=== PATIENT | male | born 1995 | race Caucasian/White ===

== ENCOUNTER 2017-09-24 22:04 | Emergency (ER) | payer OTHER ==
[2017-09-24 22:27] VITALS: BP 129/73; PULSE 73; RESP 16; TEMP 97.7; O2SAT 100
[2017-09-24 22:35] VITALS: RESP 16; O2SAT 100
[2017-09-24] MEDS ORDERED: MONT10TA4 PO (22:37)
[2017-09-24] MEDS ORDERED: ZONI50CA2 PO (22:37)
[2017-09-24] MEDS ORDERED: NITROGLYCERIN 0.4 MG SL 25 TABS/BTL SL ONE (22:45)
[2017-09-24] MEDS ORDERED: ASPIRIN 325 MG TAB PO ONE (22:45)
[2017-09-24] MEDS ORDERED: SODIUM CHLORIDE 0.9% FLUSH 10 ML FLUSH IVF PRN (22:45)
[2017-09-24 22:53] LABS: BASOPHIL # 0.1 TH/MM3 (0-0.2); BASOPHIL % 1.1 % (0.0-2.0); EOSINOPHIL # 0.2 TH/MM3 (0-0.4); EOSINOPHIL % 2.4 % (0.0-4.0); HEMATOCRIT 44.9 % (39.0-51.0); HEMOGLOBIN 15.8 GM/DL (13.0-17.0); LYMPH % 17.3 % (9.0-44.0); LYMPHOCYTE # 1.7 TH/MM3 (1.0-4.8); MEAN CELL VOLUME 83.5 FL (80.0-100.0); MEAN CORPUSCULAR HEMOGLOBIN 29.4 PG (27.0-34.0); MEAN CORPUSCULAR HGB CONC 35.2 % (32.0-36.0); MONOCYTE # 0.9 TH/MM3 (0-0.9); NEUT % 70.2 % (16.0-70.0); PLATELET COUNT 212 TH/MM3 (150-450); RED BLOOD COUNT 5.38 MIL/MM3 (4.50-5.90); RED CELL DISTRIBUTION WIDTH 13.5 % (11.6-17.2); WHITE BLOOD COUNT 9.9 TH/MM3 (4.0-11.0)
--- NOTE | 2017-09-24 23:02 | RADRPT ---
EXAM DATE/TIME: 09/24/2017 22:36 [place] COMPARISON: No previous studies available for comparison. INDICATIONS : Chest pain and shortness of breath about an hour ago. MEDICAL HISTORY : Asthma. SURGICAL HISTORY : None. ENCOUNTER: Initial ACUITY: 1 day PAIN SCORE: 10/10 LOCATION: Bilateral chest Upper chest FINDINGS: A single view of the chest demonstrates the lungs to be symmetrically aerated without evidence of mas s, infiltrate or effusion. The cardiomediastinal contours are unremarkable. Osseous structures are intact. CONCLUSION: No acute disease. Mian Sears MD on September 24, 2017 at 22:59 Board Certified Radiologist. This report was verified electronically.
--- NOTE | 2017-09-24 23:06 | PD ---
HPI Chief Complaint: Chest Pain Time Seen by Provider: 22:33 Travel History International Travel<30 days: No Contact w/Intl Traveler<30days: No Traveled to known affect area: No History of Present Illness HPI 22-year-old male complains of chest pain on left side moderate to severe in terms of severity with a pressure-like quality and radiation to the left arm. He's felt for about a month. Today it became much worse while he was working which involves primarily sitting down. He has no shortness of breath. No cough or fever. No pleuritic component. He denies hypertension hyperlipidemia high cholesterol however does have family history coronary artery disease. He quit smoking 4 years ago. He denies drug abuse. No alcohol. PFSH Past Medical History Diminished Hearing: No Migraines: Yes Past Surgical History Other Surgery: Yes (L KNEE ) Social History Alcohol Use: Yes (RARE) Tobacco Use: No Substance Use: No Allergies-Medications (Allergen,Severity, Reaction): Coded Allergies: No Known Allergies (Unverified , 09/24/17) Reported Meds & Prescriptions Reported Meds & Active Scripts Active Reported Zonisamide 50 Mg Cap 50 Mg PO DAILY Montelukast (Montelukast Sodium) 10 Mg Tab 10 Mg PO HS Review of Systems Except as stated in HPI: all other systems reviewed are Neg General / Constitutional: No: Fever Physical Exam Narrative GENERAL: 22-year-old male well-nourished well-developed no acute distress SKIN: Warm and dry. HEAD: Atraumatic. Normocephalic. EYES: Pupils equal and round. No scleral icterus. No injection or drainage. ENT: No nasal bleeding or discharge. Mucous membranes pink and moist. NECK: Trachea midline. No JVD. CARDIOVASCULAR: Regular rate and rhythm. RESPIRATORY: No accessory muscle use. Clear to auscultation. Breath sounds equal bilaterally. GASTROINTESTINAL: Abdomen soft, non-tender, nondistended. Hepatic and splenic margins not palpable. MUSCULOSKELETAL: Extremities without clubbing, cyanosis, or edema. No obvious deformities. NEUROLOGICAL: Awake and alert. No obvious cranial nerve deficits. Motor grossly within normal limits. Five out of 5 muscle strength in the arms and legs. Normal speech. PSYCHIATRIC: Appropriate mood and affect; insight and judgment normal. Data Data Last Documented VS Vital Signs Date Time Temp Pulse Resp B/P (MAP) Pulse Ox O2 Delivery O2 Flow Rate FiO2 09/24/17 22:35 100 Nasal Cannula 2.00 09/24/17 22:35 16 09/24/17 22:27 97.7 73 129/73 (91) Orders Orders Electrocardiogram (09/24/17 22:33) Basic Metabolic Panel (Bmp) (09/24/17 22:33) Ckmb (Isoenzyme) Profile (09/24/17 22:33) Complete Blood Count With Diff (09/24/17 22:33) D-Dimer (09/24/17 22:33) Magnesium (Mg) (09/24/17 22:33) Prothrombin Time / Inr (Pt) (09/24/17 22:33) Act Partial Throm Time (Ptt) (09/24/17 22:33) Troponin I (09/24/17 22:33) Chest, Single Ap (09/24/17 22:33) Ecg Monitoring (09/24/17 22:33) Iv Access Insert/Monitor (09/24/17 22:33) Oximetry (09/24/17 22:33) Oxygen Administration (09/24/17 22:33) Aspirin (Aspirin) (09/24/17 22:45) Sodium Chloride 0.9% Flush (Ns Flush) (09/24/17 22:45) Nitroglycerin Sl (Nitrostat Sl) (09/24/17 22:45) CKMB (09/24/17 22:35) CKMB% (09/24/17 22:35) Potassium Chloride (Kcl) (09/24/17 23:45) Ed Discharge Order (09/25/17 00:14) Labs Laboratory Tests Test 09/24/17 22:35 White Blood Count 9.9 TH/MM3 Red Blood Count 5.38 MIL/MM3 Hemoglobin 15.8 GM/DL Hematocrit 44.9 % Mean Corpuscular Volume 83.5 FL Mean Corpuscular Hemoglobin 29.4 PG Mean Corpuscular Hemoglobin Concent 35.2 % Red Cell Distribution Width 13.5 % Platelet Count 212 TH/MM3 Mean Platelet Volume 10.0 FL Neutrophils (%) (Auto) 70.2 % Lymphocytes (%) (Auto) 17.3 % Monocytes (%) (Auto) 9.0 % Eosinophils (%) (Auto) 2.4 % Basophils (%) (Auto) 1.1 % Neutrophils # (Auto) 7.0 TH/MM3 Lymphocytes # (Auto) 1.7 TH/MM3 Monocytes # (Auto) 0.9 TH/MM3 Eosinophils # (Auto) 0.2 TH/MM3 Basophils # (Auto) 0.1 TH/MM3 CBC Comment DIFF FINAL Differential Comment Prothrombin Time 10.8 SEC Prothromb Time International Ratio 1.1 RATIO Activated Partial Thromboplast Time 27.3 SEC D-Dimer Quantitative (PE/DVT) LESS THAN 0.19 MG/L FEU Blood Urea Nitrogen 12 MG/DL Creatinine 1.22 MG/DL Random Glucose 95 MG/DL Calcium Level 9.4 MG/DL Magnesium Level 2.0 MG/DL Sodium Level 138 MEQ/L Potassium Level 3.2 MEQ/L Chloride Level 105 MEQ/L Carbon Dioxide Level 25.1 MEQ/L Anion Gap 8 MEQ/L Estimat Glomerular Filtration Rate 73 ML/MIN Total Creatine Kinase 109 U/L Creatine Kinase MB LESS THAN 0.5 NG/ML Troponin I LESS THAN 0.02 NG/ML MDM Medical Decision Making Medical Screen Exam Complete: Yes Emergency Medical Condition: Yes Medical Record Reviewed: Yes Differential Diagnosis NSTEMI, unstable angina, coronary vasospasm, PE, PTX, aortic dissection, pericarditis, myocarditis, endocarditis, PNA, esophageal disease, aneurysm, musculoskeletal etiologies, anxiety, cocaine/sympathomimetic abuse Narrative Course EKG shows a sinus rhythm rate 69 normal axis normal intervals CBC & BMP Diagram 09/24/17 22:35 Calcium Level 9.4, Magnesium Level 2.0 Troponin less than 0.02 D-dimer less than 0.5 Last Impressions Chest X-Ray 09/24/17 8143 Signed Impressions: Service Date/Time: Sunday, September 24, 2017 22:36 - CONCLUSION: No acute disease. Mian Sears MD The patient is resting comfortably and feels better, is alert and in no distress. The patients results and examination findings were discussed. The repeat examination is unremarkable and benign. The history, exam, diagnostic testing, and current condition do not suggest any significant pathology to warrant further testing, continued ED treatment, admission, or surgical evaluation at this point. The vital signs have been stable. The patient does not have uncontrollable pain, intractable vomiting, or other significant symptoms. The patient's condition is stable and appropriate for discharge. The patient will pursue further outpatient evaluation with a primary care physician or other designated or consulting physician as indicated in the discharge instructions. The patient expressed understanding and was agreeable with this plan. Diagnosis Primary Impression: Chest pain Qualified Codes: R07.9 - Chest pain, unspecified Referrals: Primary Care Physician Med/Other Pt SpecificInfo: No Change to Meds Disposition: 01 DISCHARGE HOME Condition: Stable Jamir Blanco MD Sep 24, 2017 23:06
[2017-09-24 23:09] LABS: BICARBONATE 25.1 MEQ/L (21.0-32.0); BLOOD UREA NITROGEN 12 MG/DL (7-18); CALCIUM 9.4 MG/DL (8.5-10.1); CHLORIDE 105 MEQ/L (98-107); CREATININE 1.22 MG/DL (0.60-1.30); GLOMERULAR FILTRATION RATE 73 ML/MIN (>89); GLUCOSE,RANDOM 95 MG/DL (74-106); SODIUM (NA) 138 MEQ/L (136-145)
[2017-09-24 23:10] LABS: TROPONIN I LESS THAN 0.02 NG/ML (0.02-0.05)
[2017-09-24 23:21] LABS: INTERNATIONAL NORMALIZED RATIO 1.1 RATIO; PROTHROMBIN TIME - PATIENT 10.8 SEC (9.8-11.6)
[2017-09-24 23:22] LABS: D-DIMER LESS THAN 0.19 MG/L FEU (0.00-0.50)
[2017-09-24] MEDS ORDERED: POTASSIUM CHLORIDE 20 MEQ CONTROLLED RELEASE TAB PO ONE (23:45)
--- NOTE | 2017-09-25 13:46 | EKG ---
Date Performed: 09/24/2017 Time Performed: 22:21:58 PTAGE: 22 years EKG: Sinus rhythm POSSIBLE RIGHT VENTRICULAR CONDUCTION DELAY BORDERLINE ECG NO PREVIOUS TRACING DOCTOR: Keny Lamb Interpretating Date/Time 09/25/2017 13:43:07
== END 2017-09-25 00:31 | disposition home or self-care (01) ==
LOC: NEPC 22:04
DX: R07.9 Chest pain, unspecified (principal); Z79.899 Other long term (current) drug therapy
CPT/HCPCS: 71045; 80048; 82550; 82552; 83735; 84484; 85025; 85379; 85610; 85730; 93005; 99285